=== PATIENT | female | born 1995 | race Caucasian/White ===

== ENCOUNTER 2017-03-27 01:16 | Emergency (ER) | payer MEDICAID ==
--- NOTE | 2017-03-27 01:50 | EDM.PDOC ---
ED HPI GENERAL MEDICAL PROBLEM - General Chief Complaint: Lower Extremity Injury/Pain Stated Complaint: HURT ANKLE Time Seen by Provider: 03/27/17 01:48 Source of Information: Reports: Patient History Limitations: Reports: No Limitations - History of Present Illness INITIAL COMMENTS - FREE TEXT/NARRATIVE: tripped twisted ankle. Right Ankle Pain Score (Numeric/FACES): 8 - Related Data Allergies Allergy/AdvReac Type Severity Reaction Status Date / Time No Known Allergies Allergy Verified 03/27/17 01:20 Home Meds: Home Meds Albuterol [IMW: Albuterol HFA] 2 puff IH ASDIRECTED PRN 03/27/17 [History] Past Medical History Musculoskeletal History: Reports: Fracture - Past Surgical History HEENT Surgical History: Reports: Adenoidectomy, Oral Surgery, Tonsillectomy Musculoskeletal Surgical History: Reports: Other (See Below) Other Musculoskeletal Surgeries/Procedures:: femur repair Social & Family History - Tobacco Use Smoking Status *Q: Never Smoker - Caffeine Use Caffeine Use: Reports: None - Recreational Drug Use Recreational Drug Use: No Review of Systems - Review of Systems Review Of Systems: ROS reveals no pertinent complaints other than HPI. ED EXAM, GENERAL - Physical Exam Exam: See Below Exam Limited By: No Limitations General Appearance: Alert, WD/WN, Mild Distress, Other (ankle pain) Ears: Hearing Grossly Normal Throat/Mouth: Normal Voice, No Airway Compromise Head: Atraumatic Neck: Non-Tender, Full Range of Motion Respiratory/Chest: No Respiratory Distress Cardiovascular: Regular Rate, Rhythm GI/Abdominal: Soft, Non-Tender Extremities: Other (right ankle tender swollen, NV wnl, gait limited to pain.) Neurological: Alert, Oriented, Normal Cognition, Normal Gait, No Motor/Sensory Deficits Psychiatric: Normal Affect, Normal Mood Skin Exam: Warm, Dry, Normal Color Lymphatic: No Adenopathy Course - Vital Signs Last Recorded V/S: Last Vital Signs Temp 36.6 C 03/27/17 01:20 Pulse 114 H 03/27/17 01:20 Resp 18 03/27/17 01:20 BP 95/51 L 03/27/17 01:22 Pulse Ox 100 03/27/17 01:20 - Orders/Labs/Meds Orders: Active Orders 24 hr Category Date Time Status Ankle Min 3V Rt [CR] Urgent Exams 03/27/17 01:29 Taken Acetaminophen/HYDROcodone [Americus 325-10 MG] Med 03/27/17 02:03 Once 1 tab PO ONETIME ONE - Re-Assessments/Exams Free Text/Narrative Re-Assessment/Exam: 03/27/17 02:03 results discussed with pt. Departure - Departure Time of Disposition: 02:04 Disposition: Home, Self-Care 01 Condition: Good Clinical Impression: Fracture of foot Qualifiers: Encounter type: initial encounter Fracture type: closed Laterality: right Qualified Code(s): S92.901A - Unspecified fracture of right foot, initial encounter for closed fracture - Discharge Information Instructions: Metatarsal Fracture Forms: ED Department Discharge Additional Instructions: 1) elevate as much as possible next 48 hours 2) wear cast boot and use crutches until re-evaluated by clinic 3) see clinic Tuesday for ORTHO[EDIC REFERRAL rx given; vicodin 5/325mg bid prn x 12 - My Orders Last 24 Hours: My Active Orders 03/27/17 01:29 Ankle Min 3V Rt [CR] Urgent 03/27/17 02:03 Acetaminophen/HYDROcodone [Americus 325-10 MG] 1 tab PO ONETIME ONE - Assessment/Plan Last 24 Hours: My Active Orders 03/27/17 01:29 Ankle Min 3V Rt [CR] Urgent 03/27/17 02:03 Acetaminophen/HYDROcodone [Americus 325-10 MG] 1 tab PO ONETIME ONE
[2017-03-27] MEDS ORDERED: Acetaminophen/HYDROcodone 325-10 MG Tab PO ONE (02:03)
== END 2017-03-27 02:15 | disposition home or self-care (01) ==
LOC: DL.ED 01:16
DX: S92.354A Nondisplaced fracture of fifth metatarsal bone, right foot, initial encounter for closed fracture (principal); X50.1XXA Overexertion from prolonged static or awkward postures, initial encounter
CPT/HCPCS: 73610; 99283; A9270

== ENCOUNTER 2017-04-09 15:54 | Emergency (ER) | payer MEDICAID ==
[2017-04-09] MEDS ORDERED: Ondansetron 4 MG/2 ML SDV IV ONE (16:23)
[2017-04-09] MEDS ORDERED: Sodium Chloride 0.9% 1,000 ML IV ONE (16:23)
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
[2017-04-09] MEDS ORDERED: GI Cocktail Oral Solution 30 ML PO ONE (16:29)
[2017-04-09] MEDS ORDERED: Acetaminophen 500 MG Tab PO ONE (16:32)
[2017-04-09 17:03] LABS: CHLORIDE,CL 102 mmol/L (101-111); SODIUM,NA 138 mmol/L (135-145)
== END 2017-04-09 17:55 | disposition home or self-care (01) ==
LOC: DL.ED 15:54
DX: K52.9 Noninfective gastroenteritis and colitis, unspecified (principal)
CPT/HCPCS: 36415; 80053; 80305; 81001; 81025; 85025; 96361; 96374; 99284; A9270; J2405; J7030

== ENCOUNTER 2021-03-10 19:27 | Emergency (ER) | payer MEDICAID, OTHER ==
[2021-03-10] MEDS ORDERED: Benzonatate 100 MG Cap PO ONE (19:58)
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
[2021-03-10 20:16] LABS: ANION GAP 15.1 mEq/L (7-13); CHLORIDE,CL 105 mmol/L (98-107); SODIUM,NA 138 mmol/L (136-145)
[2021-03-10] MEDS ORDERED: Lactated Ringers 1,000 ML IV ONE (20:25)
[2021-03-10] MEDS ORDERED: Albuterol/Ipratropium 3.0-0.5 MG/3 ML Neb Soln NEB ONE (20:57)
[2021-03-10 20:58] LABS: AMPHETAMINES,URINE NEGATIVE (NEGATIVE); BARBITURATES,URINE NEGATIVE (NEGATIVE); BENZODIAZEPINE,URINE NEGATIVE (NEGATIVE); MDMA (ECSTASY), URINE NEGATIVE (NEGATIVE); METHADONE,URINE NEGATIVE (NEGATIVE); METHAMPHETAMINES,URINE NEGATIVE (NEGATIVE); OPIATES,URINE NEGATIVE (NEGATIVE); OXYCODONE,URINE NEGATIVE (NEGATIVE); PHENCYCLIDINE,URINE NEGATIVE (NEGATIVE); TCA,URINE NEGATIVE (NEGATIVE)
--- NOTE | 2021-03-10 21:38 | CR ---
PROCEDURE INFORMATION: Exam: XR Chest Exam date and time: 03/10/2021 8:32 PM Age: 25 years old Clinical indication: Other: Syncope TECHNIQUE: Imaging protocol: XR of the chest. Views: 1 view. COMPARISON: CR CHEST 1 VIEW 10/31/2009 4:20 PM FINDINGS: Lungs: Unremarkable. No consolidation. Pleural spaces: Unremarkable. No pleural effusion. No pneumothorax. Heart/Mediastinum: Unremarkable. No cardiomegaly. Bones/joints: No evidence of acute osseous abnormality. IMPRESSION: No radiographically apparent acute abnormality in the chest.
== END 2021-03-10 22:05 | disposition home or self-care (01) ==
LOC: DL.ED 19:27
DX: R55 Syncope and collapse (principal); J45.21 Mild intermittent asthma with (acute) exacerbation; E86.0 Dehydration
CPT/HCPCS: 36415; 71045; 80053; 80305; 80307; 81003; 83605; 83735; 84484; 85025; 86140; 93005; 94640; 99285; A9270; J7120; J7620-GY